=== PATIENT | female | born 1955 | race Two or more races ===

== ENCOUNTER 2022-12-17 08:31 | Inpatient (IN) | payer OTHER ==
[~2022-12-17] VITALS: Ht 160 cm; Wt 88.0 kg
[2022-12-17] MEDS ORDERED: COZAAR100 MG PO (13:05)
[2022-12-17] MEDS ORDERED: DILT-XR120 MG PO (13:07)
[2022-12-17] MEDS ORDERED: ZETIA PO (13:08)
[2022-12-22] MEDS ORDERED: MILK THISTLE175 M3 (08:51)
[2022-12-22] MEDS ORDERED: GAS RELIEF125 MG (08:51)
[2022-12-22] MEDS ORDERED: LATANOPROST2.5 ML (08:51)
[2022-12-22] MEDS ORDERED: EZETIMIBE10 MG (08:51)
[2022-12-22] MEDS ORDERED: VITAMIN E450 M1 (08:51)
[2022-12-22] MEDS ORDERED: TRIJARDY XR 5-1 EACH (08:51)
[2022-12-22] MEDS ORDERED: LOSARTAN-HCTZ1 EAC2 (08:51)
== END 2022-12-24 13:16 | disposition home or self-care (01) | DRG 330 ==
LOC: O/R 12-22 06:53 → SURG 12-22 07:00 → SURH 12-22 13:37
PROVIDERS: ADMIT Colon & Rectal Surgery; ATTEND Colon & Rectal Surgery
PROC: 07BB4ZZ Excision of Mesenteric Lymphatic, Percutaneous Endoscopic Approach (ICD-10-PCS; 2022-12-22)
PROC: 0DTF4ZZ Resection of Right Large Intestine, Percutaneous Endoscopic Approach (ICD-10-PCS; principal; 2022-12-22 07:00)
DX: C18.2 Malignant neoplasm of ascending colon (principal); K92.1 Melena; I10 Essential (primary) hypertension; E11.9 Type 2 diabetes mellitus without complications; Z79.4 Long term (current) use of insulin

== ENCOUNTER 2023-03-30 05:55 | Day surgery (SDC) | payer OTHER ==
[2023-03-28 11:34] LABS: HEMATOCRIT 44.1 % (36.0-45.00); HEMOGLOBIN 14.2 g/dL (12.0-15.00); MEAN CELL VOLUME 91.4 fL (80.00-100.00); MEAN CORPUSCULAR HEMOGLOBIN 29.4 pg (27.00-32.0); MEAN CORPUSCULAR HGB CONC 32.2 g/dl (32.0-36.0); PLATELET COUNT 215 K/uL (150-450); RED BLOOD COUNT 4.83 M/uL (4.00-6.00); RED CELL DISTRIBUTION WIDTH 14.4 % (11.5-14.5)
[2023-03-28 11:49] LABS: INR 0.98; PARTIAL THROMBOPLASTIN TIME 24.7 SECONDS (22.0-34.0); PROTHROMBIN TIME 10.3 SECONDS (9.0-11.5)
[2023-03-28 12:01] LABS: ALBUMIN 3.7 gm/dL (3.4-5.0); BILIRUBIN TOTAL 0.39 mg/dL (0.3-1.2); CALCIUM 9.1 mg/dL (8.5-10.1); CREATININE SERUM 0.76 mg/dL (0.55-1.02); GFR 75.46; GLOBULINA 3.7 G/DL (2.4-3.5); POTASSIUM 4.37 mEq/L (3.5-5.1); TOTAL PROTEIN 7.4 gm/dL (6.4-8.2)
[~2023-03-30] VITALS: Ht 154.9 cm; Wt 82.6 kg
[~2023-03-30 05:55] MED LIST: COZAAR100 MG PO; DILT-XR120 MG PO; EZETIMIBE10 MG; GAS RELIEF125 MG; LATANOPROST2.5 ML; LOSARTAN-HCTZ1 EAC2; MILK THISTLE175 M3; TRIJAR PO; TRIJARDY XR 5-1 EACH; VITAMIN E450 M1; ZETIA PO
== END 2023-03-30 11:40 | disposition home or self-care (01) ==
LOC: CIR.AMB 05:55
PROVIDERS: ATTEND Colon & Rectal Surgery
DX: C18.2 Malignant neoplasm of ascending colon (principal); K92.1 Melena; Z20.822 Contact with and (suspected) exposure to COVID-19; I10 Essential (primary) hypertension; Z88.0 Allergy status to penicillin; E78.5 Hyperlipidemia, unspecified